=== PATIENT | male | born 1950 | race Caucasian/White ===

== ENCOUNTER 2024-08-31 17:51 | Emergency (ER) | payer OTHER ==
[2024-08-31 18:52] LABS: Specific Gravity 1.018 (1.005-1.030); Sqamous Epithelial <5 /HPF (None Seen); Urine Bacteria None Seen /HPF (<20); Urine Bilirubin NEGATIVE (Negative); Urine Blood Negative (Negative); Urine Clarity Clear (Clear); Urine Color Light-Yellow (Yellow); Urine Glucose NEGATIVE (Negative); Urine Ketones TRACE (Negative); Urine Micro Reflex YN NO BILL MICROSCOPIC; Urine Mucus Slight /HPF (None Seen); Urine Nitrite NEGATIVE (Negative); Urine Protein NEGATIVE (Negative); Urine RBC <5 /HPF (None Seen); Urine Urobilinogen Normal (Normal); Urine WBC <5 /HPF (<5); Urine pH 6.5 (5.0-7.0)
[2024-08-31 19:09] LABS: Absolute Basophils 0.1 K/uL (0-0.5); Absolute Eosinophils 0.3 K/uL (0-0.5); Absolute Lymphocytes (CBC) 1.8 K/uL (0.7-4.9); Absolute Monocytes 0.9 K/uL (0.1-1.3); Absolute Neutrophil 7.4 K/uL (1.8-8.0); Basophils % 0.5 % (0-1.3); Eosinophils % 2.7 % (0-4.4); Hematocrit 44.4 % (39.6-49.0); Hemoglobin 15.3 g/dL (13.6-17.9); Lymphocytes % 17.5 % (15.3-44.8); MCH 31.7 pg (27.0-35.0); MCHC 34.4 g/dL (32.0-36.0); MCV 91.9 fL (80-100); MPV 8.6 fL (7.6-11.3); Monocytes % 8.7 % (3.3-12.3); Neutrophils % 70.6 % (41.7-73.7); Nucleated Red Blood Cells % 0.1 % (0-0); Platelets 210 thou/uL (152-406); RBC Red Blood Cell Count 4.83 M/uL (4.33-5.43); Red Cell Distribution Width 13.7 % (12.1-15.2)
[2024-08-31 19:33] LABS: Albumin 3.6 g/dL (3.4-5.0); Albumin/Globulin Ratio 1.1 (1.1-1.8); Anion Gap 9.9 mEq/L (5.0-15.0); Bilirubin Total 1.2 mg/dL (0.2-1.0); Globulin 3.2 g/dL (2.3-3.5); Potassium 3.9 mEq/L (3.5-5.1); Protein, Total 6.8 g/dL (6.4-8.2)
--- NOTE | 2024-08-31 20:06 | EDPHYS ---
Physician Documentation [facility] Name: Pola Pereira Age: 74 yrs Sex: Male : 1950 Arrival Date: 08/31/2024 Time: 17:51 Bed 7 Private MD: ED Physician Tyron Orozco HPI: 08/31 18:20 This 74 yrs old Male presents to ER via Ambulatory with complaints of Urinary Problem. cp 18:20 The patient presents with urinary symptoms, decreased urine output. cp 18:20 Onset: The symptoms/episode began/occurred gradually. Associated signs and symptoms: cp Pertinent negatives: abdominal pain, constipation, diarrhea, dysuria, fever, hematuria, vomiting. Severity of symptoms: in the emergency department the symptoms are unchanged, despite home interventions. 18:20 Patient reports history of elevated creatinine. cp Historical: - Allergies: 18:11 No Known Allergies; ss - Home Meds: 18:11 pravastatin oral [Active]; Lisinopril Oral [Active]; tamsulosin oral [Active]; ss metoprolol [Active]; - PMHx: 18:11 Hypertensive disorder; High cholesterol; ss - Immunization history:: Adult Immunizations unknown. - Infectious Disease History:: Denies. - Social history:: Smoking status: Patient denies any tobacco usage or history of. ROS: 18:25 Constitutional: Negative for body aches, chills, fever, poor PO intake, cp 18:25 Eyes: Negative for injury, pain, redness, and discharge, cp 18:25 ENT: Negative for drainage from ear(s), ear pain, sore throat, difficulty swallowing, difficulty handling secretions, 18:25 Cardiovascular: Negative for chest pain, edema, palpitations, 18:25 Respiratory: Negative for cough, shortness of breath, wheezing, 18:25 Abdomen/GI: Negative for abdominal pain, nausea, vomiting, and diarrhea, 18:25 : Positive for small amounts, Negative for hematuria, burning with urination, testicular pain 18:25 Skin: Negative for cellulitis, rash, 18:25 Neuro: Negative for altered mental status, dizziness, headache, weakness, 18:25 All other systems are negative, Exam: 18:30 Constitutional: The patient appears in no acute distress, alert, awake, non-toxic, well cp developed, well nourished, 18:30 Head/Face: Normocephalic, atraumatic. cp 18:30 Eyes: Periorbital structures: appear normal, Conjunctiva: normal, no exudate, no injection, Sclera: no appreciated abnormality, Lids and lashes: appear normal, bilaterally, 18:30 ENT: External ear(s): Nose: is normal, Mouth: Lips: moist, Oral mucosa: moist, Posterior pharynx: Airway: no evidence of obstruction, patent, 18:30 Chest/axilla: Inspection: normal, 18:30 Cardiovascular: Rate: normal, Edema: is not appreciated, JVD: is not appreciated, 18:30 Respiratory: the patient does not display signs of respiratory distress, Respirations: normal, no use of accessory muscles, no retractions, labored breathing, is not present, Breath sounds: are clear throughout, no decreased breath sounds, no stridor, no wheezing, 18:30 Abdomen/GI: Inspection: abdomen appears normal, Palpation: abdomen is soft and non-tender, in all quadrants, 18:30 Back: pain, is absent, ROM is normal, 18:30 Neuro: Orientation: to person, place \T\ time. Mentation: is normal, Gait: is steady, at a normal pace, without difficulty, Vital Signs: 18:09 BP 147 / 82; Pulse 68; Resp 16; Temp 98.5(O); Pulse Ox 99% on R/A; Weight 107.05 kg; ss Height 5 ft. 9 in. ; Pain 0/10; 20:10 BP 132 / 71; Pulse 67; Resp 16; Pulse Ox 97% ; vc1 18:09 Body Mass Index 34.85 (107.05 kg, 175.26 cm) ss 18:09 Pain Scale: Adult ss MDM: 18:14 Medical Screening Exam initiated marcus 18:35 Differential diagnosis: UTI, urinary retention, prostatitis, urethritis, cystitis, cp kidneyfailure. 20:05 Data reviewed: vital signs, nurses notes, lab test result(s), and as a result, I will cp discharge patient. 20:05 Care significantly affected by the following chronic conditions: Hypertension. cp 20:05 Counseling: I had a detailed discussion with the patient and/or guardian regarding the cp historical points, exam findings, and any diagnostic results supporting the discharge/admit diagnosis, lab results, the need for outpatient follow up, for definitive care, a urologist, to return to the emergency department if symptoms worsen or persist or if there are any questions or concerns that arise at home. 08/31 18:10 Order name: UA W/ Microscopic; Complete Time: 19:18 cp 08/31 19:18 Interpretation: Normal except: UKET TRACE; UESTR 25. cp 08/31 18:30 Order name: CBC with Diff; Complete Time: 19:18 cp 08/31 18:30 Order name: CMP; Complete Time: 19:38 cp 08/31 19:38 Interpretation: Normal except: NA 130; GLUC 107; GFR 61; BILIT 1.2. cp 08/31 18:30 Order name: Lipase; Complete Time: 19:38 cp 08/31 18:30 Order name: Bladder Scanner: pre and post void; Complete Time: 20:07 cp 08/31 18:30 Order name: IV Saline Lock; Complete Time: 18:59 cp 08/31 18:30 Order name: Labs collected and sent; Complete Time: 18:59 cp Administered Medications: No medications were administered Disposition: 09/01 06:21 Co-signature as Attending Physician, Tyron Orozco MD I agree with the assessment and marcus plan of care. Disposition Summary: 08/31/24 20:05 Discharge Ordered Notes: Location: Home cp Problem: an ongoing problem cp Symptoms: are unchanged cp Condition: Stable cp Diagnosis - Retention of urine, unspecified cp Followup: cp - With: Sarthak Gray MD - When: 5 - 6 days - Reason: Recheck today's complaints Discharge Instructions: - Discharge Summary Sheet cp - Acute Urinary Retention, Male cp Forms: - Medication Reconciliation Form cp - Antibiotic Education cp - Prescription Opioid Use cp - Patient Portal Instructions cp - Leadership Thank You Letter cp Signatures: Dispatcher [employer] Tyron Martinez MD MD cha Blanchard, Shelby, RN RN Tyron Begum PA PA cp Calcote, Vanessa RN RN vc1
--- NOTE | 2024-08-31 20:06 | ER ---
Nurse's Notes [facility] Name: Pola Pereira Age: 74 yrs Sex: Male : 1950 Arrival Date: 08/31/2024 Time: 17:51 Bed 7 Private MD: Diagnosis: Retention of urine, unspecified Presentation: 08/31 18:09 Chief complaint: Patient states: "overactive bladder" for some time. Pt has been seen ss by Dr. Valladares for same complaints and was given a medication to help with an overactive bladder, but states he quit taking it because it made him quit urinating completely. Pt states he has been having some burning with urination and frequency. Coronavirus screen: Client denies travel out of the [place] in the last 14 days. Ebola Screen: Patient denies exposure to infectious person. Patient denies travel to an Ebola-affected area in the 21 days before illness onset. Initial Sepsis Screen: Does the patient meet any 2 criteria? No. Patient's initial sepsis screen is negative. Does the patient have a suspected source of infection? No. Patient's initial sepsis screen is negative. Risk Assessment: Do you want to hurt yourself or someone else? Patient reports no desire to harm self or others. Onset of symptoms is unknown. 18:09 Method Of Arrival: Ambulatory ss 18:09 Acuity: HAM 3 ss Historical: - Allergies: 18:11 No Known Allergies; ss - Home Meds: 18:11 pravastatin oral [Active]; Lisinopril Oral [Active]; tamsulosin oral [Active]; ss metoprolol [Active]; - PMHx: 18:11 Hypertensive disorder; High cholesterol; ss - Immunization history:: Adult Immunizations unknown. - Infectious Disease History:: Denies. - Social history:: Smoking status: Patient denies any tobacco usage or history of. Screenin:32 [facility] ED Fall Risk Assessment (Adult) History of falling in the last 3 months, mb9 including since admission No falls in past 3 months (0 pts) Confusion or Disorientation No (0 pts) Intoxicated or Sedated No (0 pts) Impaired Gait No (0 pts) Mobility Assist Device Used No (0 pt) Altered Elimination No (0 pt) Score/Fall Risk Level 0 - 2 = Low Risk Maintained a safe environment, Educated pt \\T\\ family on fall prevention, incl call for assistance when getting out of bed. Abuse screen: Denies threats or abuse. Nutritional screening: No deficits noted. Tuberculosis screening: No symptoms or risk factors identified. Assessment: 18:32 General: Appears in no apparent distress. Pain: Denies pain. Neuro: Fito patino9 Agitation-Sedation Scale (RASS): 0 - Alert and Calm Level of Consciousness is awake, alert, obeys commands, Oriented to person, place, time, situation, Appropriate for age. Cardiovascular: Patient's skin is warm and dry. Respiratory: Airway is patent Respiratory effort is even, unlabored, Respiratory pattern is regular, symmetrical. GI: Abdomen is round non-distended. : Reports urinary frequency. EENT: No signs and/or symptoms were reported regarding the EENT system. Derm: Skin is pink, warm \\T\\ dry. Musculoskeletal: Range of motion: intact in all extremities. 20:02 Reassessment: Patient appears in no apparent distress at this time. No changes from vc1 previously documented assessment. Patient and/or family updated on plan of care and expected duration. Pain level reassessed. Patient is alert, oriented x 3, equal unlabored respirations, skin warm/dry/pink. Vital Signs: 18:09 BP 147 / 82; Pulse 68; Resp 16; Temp 98.5(O); Pulse Ox 99% on R/A; Weight 107.05 kg; ss Height 5 ft. 9 in. ; Pain 0/10; 20:10 BP 132 / 71; Pulse 67; Resp 16; Pulse Ox 97% ; vc1 18:09 Body Mass Index 34.85 (107.05 kg, 175.26 cm) 18:09 Pain Scale: Adult ED Course: 17:56 Patient arrived in ED. al6 17:56 Tyron Sarah PA is PHCP. cp 17:56 Tyron Orozco MD is Attending Physician. cp 18:11 Triage completed. ss 18:11 Arm band placed on right wrist. ss 18:14 Sharlene Patel, JOSSE is Primary Nurse. mb9 18:33 Bed in low position. Call light in reach. Side rails up X 1. Provided Education on: mb9 press call light if needing anything. Client placed on continuous cardiac and pulse oximetry monitoring. NIBP monitoring applied. 18:34 UA W/ Microscopic Sent. mb9 18:59 Warm blanket given. am7 18:59 Inserted saline lock: 20 gauge in left forearm, using aseptic technique. Blood am7 collected. Flushed with 10 mL NS. 19:45 Bladder scan completed. 243. vc1 20:01 Bladder scan completed. 186. vc1 20:04 Sarthak Gray MD is Referral Physician. cp 20:11 No provider procedures requiring assistance completed. IV discontinued, intact, vc1 bleeding controlled, No redness/swelling at site. Pressure dressing applied. Administered Medications: No medications were administered Medication: 18:33 VIS not applicable for this client. mb9 Outcome: 20:05 Discharge ordered by . cp 20:11 Discharged to home ambulatory, vc1 20:11 Condition: stable 20:11 Discharge instructions given to patient, Instructed on discharge instructions, follow up and referral plans. Demonstrated understanding of instructions, follow-up care, 20:17 Patient left the ED. vc1 Signatures: Melida Dennis RN RN Tyron Sarah PA PA cp Joan Kwan RN RN vc1 Sharlene Patel RN RN mb9 Kathya Black am7 Zabrina Aguirre al6
[2024-08-31 21:00] VITALS: BP 147/82; TEMP 98.5; O2SAT 99
== END 2024-08-31 20:17 | disposition home or self-care (01) ==
LOC: ER 17:51
DX: R33.9 Retention of urine, unspecified (principal); I10 Essential (primary) hypertension; E78.00 Pure hypercholesterolemia, unspecified
CPT/HCPCS: 36415; 80053; 81001; 83690; 85025; 99284